=== PATIENT | female | born 1985 ===

== ENCOUNTER 2021-11-19 06:26 | Day surgery (SDC) | payer OTHER ==
[~2021-11-19 06:26] MED LIST: Lactated Ringers 1,000 ML IV SCH
[2021-11-19] MEDS ORDERED: Midazolam 1 MG/ML 2 ML SDV ONE (07:36)
[2021-11-19] MEDS ORDERED: Propofol 200 MG/20 ML SDV ONE (07:36)
[2021-11-19 09:13] VITALS: PULSE 80
[2021-11-19 09:22] VITALS: BP 114/55
== END 2021-11-19 09:40 | disposition home or self-care (01) ==
LOC: MW.SDS 06:26 → MERGE 06:26 → MW.SDS 09:40
PROVIDERS: ATTEND Surgery
DX: K59.00 Constipation, unspecified (principal); K92.1 Melena; R10.13 Epigastric pain; Z98.890 Other specified postprocedural states; Z79.899 Other long term (current) drug therapy; Z90.49 Acquired absence of other specified parts of digestive tract
CPT/HCPCS: 43239; 45380; J2250; J2704; J7120; 00813; 81025

== ENCOUNTER → 2021-11-19 | Day surgery (SDC) | payer OTHER | LOC: MW.CHGS 11-18 08:17 → MW.SDS 06:26 | PROVIDERS: ATTEND Surgery | DX: K59.00 Constipation, unspecified (principal); K92.1 Melena; R10.13 Epigastric pain; R14.0 Abdominal distension (gaseous); Z98.890 Other specified postprocedural states; Z79.899 Other long term (current) drug therapy; Z90.49 Acquired absence of other specified parts of digestive tract; Z01.812 Encounter for preprocedural laboratory examination; Z20.822 Contact with and (suspected) exposure to COVID-19 | CPT/HCPCS: 81025; U0002 ==